=== PATIENT | male | born 1950 | race American Indian/Alaskan Native ===

== ENCOUNTER 2019-03-31 08:20 | Day surgery (SDC) | payer OTHER ==
[~2019-03-31 08:20] MED LIST: PROPOFOL 200 MG/20 ML VIAL IV ONE
[2019-03-31] MEDS ORDERED: SODIUM CHLORIDE 0.9% 1000 ML 1,000 ML IV SCH (09:00)
--- NOTE | 2019-03-31 09:16 | Anesthesia Day of Surgery ---
Anesthesia Day of Surgery - Day of Surgery Patient Examined: Yes Patient H&P Reviewed: Yes Patient is NPO: Yes
--- NOTE | 2019-03-31 09:19 | Anesthesia Consultation ---
Anesthesia Consult and Med Hx - Airway Anesthetic Teeth Evaluation: Poor ROM Head & Neck: Adequate Mental/Hyoid Distance: Adequate Mallampati Class: Class II Intubation Access Assessment: Probably Good - Pulmonary Exam CTA: Yes - Cardiac Exam Cardiac Exam: RRR - Pre-Operative Health Status ASA Pre-Surgery Classification: ASA3 Proposed Anesthetic Plan: General, MAC - Pulmonary Hx Respiratory Symptoms: Yes (H/O Lung Cancer) - Cardiovascular System Hx Hypertension: Yes Hx Coronary Artery Disease: Yes Hx Percutaneous Transluminal Coronary Angioplasty (PTCA): Yes - Endocrine Hx Renal Disease: Yes (H/O Bladder and Prostate Cancer)
--- NOTE | 2019-03-31 10:36 | Procedure Note ---
Date of procedure: 03/31/19 Pre-op diagnosis: H/O Colon Polyps Post-op diagnosis: other (Two Proximal colon Polyps/Extensive,Diverticular Disease) Procedure: Colonoscopy with Snare Polypectomy and Hot Biopsy Anesthesia: MAC Surgeon: KATIE MASTERS Estimated blood loss: minimal Pathology: list Specimen disposition: to lab Condition: stable Disposition: same day (Avoid aspirin and NSAID and anticoagulants for 4 days. Encourage fiber intake after 7 days. Resume home medication and follow up in 1 to 2 weeks ([phone]).)
--- NOTE | 2019-03-31 10:40 | Post Anesthesia Evaluation ---
- Post Anesthesia Evaluation Patient Participated: Yes Airway Patent: Yes Stable Respiratory Function: Yes Nausea/Vomiting: No Temp > 96.8F: Yes Pain Manageable: Yes Adequeate Hydration: Yes Anesthesia Complications: No Block Receding Appropriately: Not Applicable Patient on Ventilator: No
[2019-03-31] MEDS ORDERED: LIDOCAINE MPF (2%) 20 MG/1 ML VIAL 5 ML ONE (11:00)
[2019-03-31 11:26] VITALS: BP 157/85
[2019-03-31] MEDS ORDERED: PROPOFOL 200 MG/20 ML VIAL IV ONE (11:28)
--- NOTE | 2019-03-31 11:35 | Operative Report ---
PROCEDURE: Colonoscopy with snare polypectomy and usual hot biopsy. INDICATIONS: This is a 68-year-old -[place] gentleman with a prior history of multiple cancers including lung cancer for which he has had surgery involving the right lung, prostate cancer and bladder cancer for which he has received chemotherapy and radiation treatment for the prostate cancer. He has had prior history of colon polyps. Repeat colonoscopy was done to make sure there was not any recurrence of any polyps. Procedure was done after getting informed consent with MAC anesthesia. Initial rectal exam was unremarkable. Instrument was passed through the rectum onto the cecum, which was identified with ileocecal valve and appendiceal orifice. The scope was retroflexed in the cecum and withdrawn to the hepatic flexure and then reintroduced. On reintroduction, a 10 mm sessile polyp was noted in the fold in the cecum. This was removed by cold snare polypectomy. An additional larger polyp probably 12 mm and sessile and was noted in the ascending colon that was removed by application of hot snare polypectomy as well as hot biopsy. Photodocumentation was obtained. There was minimal bleeding from these polypectomy sites. There were a few scattered diverticula noted in the proximal colon, the transverse colon showed normal mucosa. The patient had extensive diverticular disease involving the left colon and the rectum showed mild to moderate internal hemorrhoids. There was minimal bleeding associated with the polypectomy. No complications associated with the procedure. ASSESSMENT: 1. History of colon polyps, history of multiple cancers. 2. Proximal colon polyps removed. Extensive left colon and scattered diverticula noted and moderate internal hemorrhoid. The patient will be asked to avoid aspirin, aspirin-related products and encourage fiber supplements after a few days, resume previous medication and follow up in the office in 1-2 weeks' time. The procedure was done in the GI lab with the assistance of anesthesia and in the presence and with the assistance of the GI lab team, which included Bambi LAGUNAS as well as James abrams. JOB# [id number] IZAIAH/MELODIE
== END 2019-03-31 08:21 | disposition home or self-care (01) ==
LOC: GIO 08:20
DX: Z12.11 Encounter for screening for malignant neoplasm of colon (principal); D12.0 Benign neoplasm of cecum; D12.2 Benign neoplasm of ascending colon; K64.8 Other hemorrhoids; K57.30 Diverticulosis of large intestine without perforation or abscess without bleeding; I25.10 Atherosclerotic heart disease of native coronary artery without angina pectoris; E78.00 Pure hypercholesterolemia, unspecified; I10 Essential (primary) hypertension; G47.30 Sleep apnea, unspecified; F17.210 Nicotine dependence, cigarettes, uncomplicated; Z85.51 Personal history of malignant neoplasm of bladder; Z85.46 Personal history of malignant neoplasm of prostate; Z85.118 Personal history of other malignant neoplasm of bronchus and lung; Z86.010 Personal history of colon polyps; Z79.899 Other long term (current) drug therapy; Z98.890 Other specified postprocedural states
CPT/HCPCS: 45384; 45385; 88305; J2704

== ENCOUNTER 2019-12-07 19:18 | Emergency (ER) | payer OTHER ==
--- NOTE | 2019-12-07 19:31 | Event Note ---
ED Screening Note Date of service: 12/07/19 Time: 19:27 ED Screening Note: 69 y/o male comes in for right arm pain that is been in pain for several days.Denies any injuries. Patient recently had a heart attack and had stents placed. Hx/o COPD< Bladder ca, prostate CA, renal disease, PTSD no diabetes. This initial assessment/diagnostic orders/clinical plan/treatment(s) is/are subject to change based on patients health status, clinical progression and re- assessment by fellow clinical providers in the ED. Further treatment and workup at subsequent clinical providers discretion. Patient/guardian urged not to elope from the ED as their condition may be serious if not clinically assessed and managed. Initial orders include:
[2019-12-07 19:50] VITALS: BP 145/82
--- NOTE | 2019-12-07 20:00 | Emergency Department Report ---
ED General Adult HPI - General Chief complaint: Shoulder Injury Stated complaint: COUGHING,RT SHOULDER PAIN Time Seen by Provider: 12/07/19 19:52 Source: patient Mode of arrival: Ambulatory Limitations: No Limitations - History of Present Illness Initial comments: 69-year-old -[place] male with past medical history of COPD, myocardial infarction last was about 6 weeks ago, hypertension, cardiovascular stent placement presents emergency department complaining of right shoulder pain and right upper chest pain for the last 3 days pain is worse with deep breaths and range of motion. He reports no fever, chills, sweats no hemoptysis no odynophagia no orthopnea no lower extremity swelling no wheezing. Reports having a chronic cough for the last 3 to 4 years but states that not an issue over the past few weeks. Radiation: non-radiation Quality: dull Consistency: constant Worsens with: none Associated Symptoms: confusion, cough. denies: loss of appetite, malaise, nausea/vomiting, rash, syncope, weakness - Related Data Previous Rx's Medication Instructions Recorded Last Taken Type Ketorolac [Toradol] 10 mg PO BID PRN #10 tablet 12/07/19 Unknown Rx traMADoL [Ultram] 50 mg PO Q6HR PRN #10 tablet 12/07/19 Unknown Rx Allergies Allergy/AdvReac Type Severity Reaction Status Date / Time No Known Allergies Allergy Unverified 03/31/19 08:21 ED Review of Systems ROS: Stated complaint: COUGHING,RT SHOULDER PAIN Other details as noted in HPI Comment: All other systems reviewed and negative ED Past Medical Hx - Past Medical History Hx Hypertension: Yes Hx Heart Attack/AMI: Yes (2012 and 2019) Hx Renal Disease: Yes (H/O Bladder and Prostate Cancer) Hx COPD: Yes - Surgical History Hx Coronary Stent: Yes (x 3) Additional Surgical History: left leg and ankle, multiple back, - Social History Smoking Status: Current Every Day Smoker Substance Use Type: None - Medications Home Medications: Home Medications Medication Instructions Recorded Confirmed Last Taken Type Ketorolac [Toradol] 10 mg PO BID PRN #10 tablet 12/07/19 Unknown Rx traMADoL [Ultram] 50 mg PO Q6HR PRN #10 tablet 12/07/19 Unknown Rx ED Physical Exam - General Limitations: No Limitations General appearance: alert, in no apparent distress - Head Head exam: Present: atraumatic, normocephalic - Eye Eye exam: Present: normal appearance, PERRL, EOMI Pupils: Present: normal accommodation - ENT ENT exam: Present: normal exam, normal orophraynx, mucous membranes moist - Neck Neck exam: Present: normal inspection, full ROM - Respiratory Respiratory exam: Present: normal lung sounds bilaterally, chest wall tenderness (Palpation to the right upper chest the right upper lateral aspect of the chest. No left heaves or thrills no subcutaneous emphysema is noted.). Absent: respiratory distress, wheezes, rales, rhonchi, accessory muscle use - Cardiovascular Cardiovascular Exam: Present: regular rate, normal rhythm. Absent: systolic murmur, diastolic murmur, rubs, gallop - GI/Abdominal GI/Abdominal exam: Present: soft, normal bowel sounds - Rectal Rectal exam: Present: deferred - Extremities Exam Extremities exam: Present: normal inspection, tenderness (Some pain to the chest with range of motion of the upper extremity primaryHawkins test and a B duction. No pain with Compton's test some mild discomfort with Neer's test no sulcus sign. Full range of motion of the shoulder strength 5/5) - Back Exam Back exam: Present: normal inspection. Absent: CVA tenderness (R), CVA tenderness (L) - Neurological Exam Neurological exam: Present: alert, oriented X3, CN II-XII intact - Psychiatric Psychiatric exam: Present: normal affect, normal mood - Skin Skin exam: Present: warm, dry, intact, normal color. Absent: rash ED Course Vital Signs 12/07/19 12/07/19 19:26 19:27 Temperature 98.9 F Pulse Rate 90 86 Respiratory 20 20 Rate Blood Pressure 145/82 O2 Sat by Pulse 94 96 Oximetry ED Medical Decision Making - Medical Decision Making This patient presents with chest pain that is unlikely angina or acute coronary syndrome. The emergency department evaluation has not identified any cause for suspicion that this chest pain has a cardiac etiology. Based on their history, Mr. Knight refused EKG and imaging, in addition to the patient's physical exam seen he felt no reason to have this done as he felt great overall. States he simply came to the emergency department per recommendation of his girlfriend whom he thinks is a hypochondriac states he is doing well pain that he just had a heart attack and was treated. Nonetheless with the limited information I see no evidence at this time for a malignant etiology for the patient's chest pain. There is no acute evidence for pulmonary embolus, acute myocardial infarction, pneumothorax, Boerhaeve syndrome, cardiac tamponade, thoracic artery dissection, or any other emergent cardiac, pulmonary or aortic pathology. Given the low pre-test probability for cardiac etiology of chest pain and the absence of any sign of ischemia or infarction, discharge for outpatient follow-up and further evaluation is reasonable. I have explained to the patient that even though a cardiac problem is not overtly obvious at this present time follow-up and further testing is required to reduce further the uncertainty that exists. Other life-threatening diagnoses have been considered. The patient understands the need to return immediately if their symptoms worsen or they develop any new symptoms, and not to engage in any significant exertional activity until follow-up is obtained. Mr. Palm is of sound judgment normal behavior alert and oriented x3 understands risk associated does request some pain medication for his chest pain which she thinks is musculoskeletal Critical care attestation.: If time is entered above; I have spent that time in minutes in the direct care of this critically ill patient, excluding procedure time. ED Disposition Clinical Impression: Chest pain Disposition: [id number] TO HOME OR SELFCARE Is pt being admited?: No Does the pt Need Aspirin: No Condition: Stable Instructions: Chest Pain (ED), Costochondritis (ED) Prescriptions: Ketorolac [Toradol] 10 mg PO BID PRN #10 tablet PRN Reason: Pain traMADoL [Ultram] 50 mg PO Q6HR PRN #10 tablet PRN Reason: Pain Referrals: CELINA GIBSON MD [Staff Physician] - 3-5 Days
== END 2019-12-07 20:10 | disposition home or self-care (01) ==
LOC: ED 19:18
DX: R07.89 Other chest pain (principal); I10 Essential (primary) hypertension; J44.9 Chronic obstructive pulmonary disease, unspecified; M25.511 Pain in right shoulder; I25.2 Old myocardial infarction; F17.200 Nicotine dependence, unspecified, uncomplicated; Z95.818 Presence of other cardiac implants and grafts; Z98.890 Other specified postprocedural states; Z85.46 Personal history of malignant neoplasm of prostate
CPT/HCPCS: 99282